=== PATIENT | male | born 1950 | race Caucasian/White ===

== ENCOUNTER → 2025-01-24 | Outpatient (CLI) | payer OTHER, SELFPAY ==
--- NOTE | 2025-01-24 08:11 | US_ITS ---
PROCEDURE: US/ABD Limited w/ Elastography
== END | disposition home or self-care (01) ==
PROVIDERS: PCP Internal Medicine; Referring Provider Internal Medicine; Visit Provider Internal Medicine
DX: K76.0 Fatty (change of) liver, not elsewhere classified (principal)
CPT/HCPCS: 76705; 76981